=== PATIENT | male | born 1960 | race African-American/Black ===

== ENCOUNTER 2021-02-23 00:39 | Inpatient (IN) | payer OTHER ==
[2021-02-23 01:10] LABS: #Basophils 0.1 10x3/uL (0.0-0.2); #Eosinphils 0.3 10x3/uL (0.0-0.5); #Monocytes 0.7 10x3/uL (0.0-1.1); #Neutrophils 3.7 10x3/uL (1.5-8.4); %Eosinophils 4.2 % (0.0-6.0); %Lymphocytes 21.4 % (18.0-47.0); %Monocytes 11.7 % (0.0-10.0); %Neutrophils 61.2 % (40.0-75.0); Hemoglobin 13.2 g/dL (13.5-17.5); Mean Corpuscular HGB CONC 32.4 g/dL (32.0-36.0); Mean Corpuscular Hemoglobin 27.8 pg (27.0-33.0); Mean Corpuscular Volume 85.7 fl (81.2-95.1); Mean Platelet Volume 10.7 fl (7.4-10.4); Platelet Count 144 10x3/uL (150-450); RBC Distribution Width 15.9 % (11.5-14.5); Red Blood Cell (RBC) Count 4.75 10x6/uL (4.32-5.72)
[2021-02-23 01:27] LABS: ALT (SGPT) 13 U/L (8-55); AST (SGOT) 20 U/L (5-34); Albumin 3.8 g/dL (3.4-4.8); Alkaline Phosphatase 68 U/L (40-110); Anion Gap 14 mmol/L (10-20); BUN (Urea Nitrogen) 27 mg/dL (8.4-25.7); Bilirubin, Total 1.3 mg/dL (0.2-1.2); Calc. Creatinine Clearance 0 mL/min (70-130); Calcium 8.9 mg/dL (7.8-10.44); Carbon Dioxide 23 mmol/L (23-31); Chloride 105 mmol/L (98-107); Globulin 3.2 g/dL (2.4-3.5); Glucose 100 mg/dL (80-115); Potassium 4.2 mmol/L (3.5-5.1); Sodium 138 mmol/L (136-145)
[2021-02-23 01:46] LABS: CKMB 2.3 ng/mL (0-6.6)
[2021-02-23] MEDS ORDERED: Furosemide 100 MG/10 ML VIAL ONE (01:50)
[2021-02-23] MEDS ORDERED: Enoxaparin Sodium 40 MG/0.4 ML SYRINGE SC SCH (04:30)
[2021-02-23] MEDS ORDERED: Nitroglycerin 0.4 MG TAB (25 Tab Bottle) SL PRN (04:34)
[2021-02-23 05:02] LABS: Troponin I 0.062 ng/mL (< 0.028)
[2021-02-23] MEDS: Furosemide 40 MG/4 ML VIAL SLOW IVP SCH ×2 (05:26→15:43)
[2021-02-23] MEDS: Nitroglycerin 2% Ointment 1 INCH/1 GM Packet TOP SCH ×3 (06:16→22:00)
[2021-02-23] MEDS: Levothyroxine Sodium 50 MCG TAB PO SCH (06:19)
[2021-02-23 07:24] LABS: Anion Gap 15 mmol/L (10-20); BUN (Urea Nitrogen) 25 mg/dL (8.4-25.7); Calc. Creatinine Clearance 70 mL/min (70-130); Calcium 9.3 mg/dL (7.8-10.44); Carbon Dioxide 26 mmol/L (23-31); Chloride 102 mmol/L (98-107); Glucose 93 mg/dL (80-115); Magnesium 1.8 mg/dL (1.6-2.6); Potassium 3.9 mmol/L (3.5-5.1); Sodium 139 mmol/L (136-145)
[2021-02-23 07:28] LABS: Troponin I 0.055 ng/mL (< 0.028)
[2021-02-23 07:32] LABS: #Basophils 0.1 10x3/uL (0.0-0.2); #Eosinphils 0.3 10x3/uL (0.0-0.5); #Monocytes 0.6 10x3/uL (0.0-1.1); #Neutrophils 3.5 10x3/uL (1.5-8.4); %Basophils 0.9 % (0.0-2.0); %Eosinophils 4.7 % (0.0-6.0); %Lymphocytes 20.9 % (18.0-47.0); %Monocytes 11.3 % (0.0-10.0); %Neutrophils 61.8 % (40.0-75.0); Hemoglobin 13.9 g/dL (13.5-17.5); Mean Corpuscular HGB CONC 32.3 g/dL (32.0-36.0); Mean Corpuscular Volume 86.5 fl (81.2-95.1); Mean Platelet Volume 10.1 fl (7.4-10.4); Platelet Count 149 10x3/uL (150-450); RBC Distribution Width 16.2 % (11.5-14.5); Red Blood Cell (RBC) Count 4.97 10x6/uL (4.32-5.72); White Blood Cell (WBC) Count 5.6 10x3/uL (3.5-10.5)
[2021-02-23] MEDS ORDERED: Aspirin 81 mg Enteric Coated Tablet PO SCH (09:00)
[2021-02-23] MEDS: Spironolactone 25 MG TAB PO SCH (09:37)
[2021-02-23] MEDS: Lisinopril 2.5 MG TAB PO SCH (09:37)
[2021-02-23] MEDS: Carvedilol 12.5 MG TAB PO SCH ×2 (09:37→20:45)
[2021-02-23] MEDS: Aspirin 81 mg Enteric Coated Tablet PO SCH (09:37)
[2021-02-23] MEDS: Amiodarone 200 MG TAB PO SCH ×2 (09:37→20:45)
[2021-02-23] MEDS: hydrALAZINE 25 MG TAB PO SCH ×2 (09:37→20:45)
[2021-02-23] MEDS: Ferrous Sulfate 325 MG TAB PO SCH (09:38)
[2021-02-23] MEDS ORDERED: Magnesium Sulfate 2 GM in Sodium Chloride 0.9% 100 ML IVPB SCH (10:00)
[2021-02-23] MEDS ORDERED: Magnesium 2 GM/50 ML 2 GM in Premix Bag 1 BAG IVPB SCH (10:00)
[2021-02-23 17:22] LABS: SARS-CoV-2 PCR by NAA Not Detected (NotDetected)
[2021-02-23] MEDS: Atorvastatin Calcium 40 MG TAB PO SCH (20:45)
[2021-02-24 05:56] LABS: Anion Gap 12 mmol/L (10-20); BUN (Urea Nitrogen) 25 mg/dL (8.4-25.7); Calc. Creatinine Clearance 66 mL/min (70-130); Calcium 8.8 mg/dL (7.8-10.44); Carbon Dioxide 30 mmol/L (23-31); Chloride 102 mmol/L (98-107); Glucose 109 mg/dL (80-115); Potassium 3.8 mmol/L (3.5-5.1); Sodium 140 mmol/L (136-145)
[2021-02-24] MEDS: Furosemide 40 MG/4 ML VIAL SLOW IVP SCH (06:16)
[2021-02-24] MEDS: Levothyroxine Sodium 50 MCG TAB PO SCH (06:16)
[2021-02-24] MEDS: Nitroglycerin 2% Ointment 1 INCH/1 GM Packet TOP SCH (06:16)
[2021-02-24] MEDS ORDERED: Loperamide HCl 2 MG CAP PO PRN (06:27)
[2021-02-24] MEDS ORDERED: Bisacodyl 5 MG TAB PO PRN (06:27)
[2021-02-24] MEDS ORDERED: Cepastat Lozenges 1 LOZ PO PRN (06:27)
[2021-02-24] MEDS ORDERED: GUAIFENESIN SF SOLN 200 MG/10 ML UDCUP PO PRN (06:27)
[2021-02-24] MEDS ORDERED: HYDROcodone/Acetaminophen 5/325 mg Tablet PO PRN (06:27)
[2021-02-24] MEDS ORDERED: Hydrocerin (Eucerin) Cream 120 gm Jar TOP PRN (06:27)
[2021-02-24] MEDS ORDERED: Artificial Tear Sol 15 ML BOT EA EYE PRN (06:27)
[2021-02-24] MEDS ORDERED: Sodium Chloride 0.65% Nasal 44 ML BOT EA NARE PRN (06:27)
[2021-02-24] MEDS ORDERED: Loratadine 10 MG TAB PO PRN (06:27)
[2021-02-24] MEDS ORDERED: Calcium Carbonate 500 MG ChewTAB PO PRN (06:27)
[2021-02-24] MEDS ORDERED: Metoclopramide HCl 10 MG/2 ML VIAL IVP PRN (06:27)
[2021-02-24] MEDS ORDERED: hydrALAZINE 20 MG/ML VIAL SLOW IVP PRN (06:27)
[2021-02-24] MEDS ORDERED: Senokot S 8.6-50 MG TAB PO PRN (06:27)
[2021-02-24] MEDS ORDERED: Potassium Chloride 20 MEQ TAB PO SCH (08:45)
[2021-02-24] MEDS: Amiodarone 200 MG TAB PO SCH ×2 (09:33→20:06)
[2021-02-24] MEDS: Spironolactone 25 MG TAB PO SCH (09:34)
[2021-02-24] MEDS: hydrALAZINE 25 MG TAB PO SCH ×2 (09:34→20:04)
[2021-02-24] MEDS: Carvedilol 12.5 MG TAB PO SCH ×2 (09:34→20:07)
[2021-02-24] MEDS: Ferrous Sulfate 325 MG TAB PO SCH (09:34)
[2021-02-24] MEDS: Lisinopril 2.5 MG TAB PO SCH ×2 (09:34→20:06)
[2021-02-24] MEDS: Aspirin 81 mg Enteric Coated Tablet PO SCH (09:35)
[2021-02-24] MEDS: Furosemide 40 MG TAB PO SCH (13:41)
[2021-02-24] MEDS: Atorvastatin Calcium 40 MG TAB PO SCH (20:06)
[2021-02-25 05:51] LABS: #Eosinphils 0.3 10x3/uL (0.0-0.5); #Monocytes 0.7 10x3/uL (0.0-1.1); #Neutrophils 3.8 10x3/uL (1.5-8.4); %Basophils 0.5 % (0.0-2.0); %Eosinophils 4.7 % (0.0-6.0); %Lymphocytes 18.1 % (18.0-47.0); %Monocytes 12.4 % (0.0-10.0); %Neutrophils 63.8 % (40.0-75.0); Hemoglobin 13.3 g/dL (13.5-17.5); Mean Corpuscular HGB CONC 30.9 g/dL (32.0-36.0); Mean Corpuscular Hemoglobin 27.5 pg (27.0-33.0); Mean Corpuscular Volume 89.2 fl (81.2-95.1); Mean Platelet Volume 10.7 fl (7.4-10.4); Platelet Count 154 10x3/uL (150-450); Red Blood Cell (RBC) Count 4.83 10x6/uL (4.32-5.72)
[2021-02-25] MEDS: Levothyroxine Sodium 50 MCG TAB PO SCH (06:01)
[2021-02-25 07:32] LABS: ALT (SGPT) 14 U/L (8-55); AST (SGOT) 18 U/L (5-34); Albumin 3.5 g/dL (3.4-4.8); Alkaline Phosphatase 67 U/L (40-110); Anion Gap 11 mmol/L (10-20); BUN (Urea Nitrogen) 24 mg/dL (8.4-25.7); Bilirubin, Total 1.2 mg/dL (0.2-1.2); Calc. Creatinine Clearance 69 mL/min (70-130); Calcium 8.9 mg/dL (7.8-10.44); Carbon Dioxide 29 mmol/L (23-31); Chloride 103 mmol/L (98-107); Globulin 3.4 g/dL (2.4-3.5); Glucose 126 mg/dL (80-115); Phosphorus 3.8 mg/dL (2.3-4.7); Protein, Total 6.9 g/dL (5.8-8.1); Sodium 139 mmol/L (136-145)
[2021-02-25] MEDS ORDERED: Metolazone 5 MG TAB PO SCH (08:45)
[2021-02-25] MEDS: Spironolactone 25 MG TAB PO SCH (08:55)
[2021-02-25] MEDS: Furosemide 40 MG TAB PO SCH ×2 (08:55→14:51)
[2021-02-25] MEDS: Amiodarone 200 MG TAB PO SCH ×2 (08:55→20:52)
[2021-02-25] MEDS: Carvedilol 12.5 MG TAB PO SCH ×2 (08:55→20:53)
[2021-02-25] MEDS: Aspirin 81 mg Enteric Coated Tablet PO SCH (08:55)
[2021-02-25] MEDS: hydrALAZINE 25 MG TAB PO SCH ×2 (08:55→20:52)
[2021-02-25] MEDS: Lisinopril 2.5 MG TAB PO SCH ×2 (08:56→20:53)
[2021-02-25] MEDS: Enoxaparin Sodium 40 MG/0.4 ML SYRINGE SC SCH (08:56)
[2021-02-25] MEDS: Atorvastatin Calcium 40 MG TAB PO SCH (20:00)
[2021-02-26 06:04] LABS: Anion Gap 12 mmol/L (10-20); BUN (Urea Nitrogen) 26 mg/dL (8.4-25.7); Calc. Creatinine Clearance 68 mL/min (70-130); Calcium 9.4 mg/dL (7.8-10.44); Carbon Dioxide 29 mmol/L (23-31); Chloride 102 mmol/L (98-107); Glucose 110 mg/dL (80-115); Potassium 3.7 mmol/L (3.5-5.1); Sodium 139 mmol/L (136-145)
[2021-02-26 06:26] VITALS: BMI 33.8
[2021-02-26] MEDS: Levothyroxine Sodium 50 MCG TAB PO SCH (06:45)
[2021-02-26] MEDS ORDERED: Metolazone 5 MG TAB PO SCH (08:30)
[2021-02-26] MEDS: Furosemide 40 MG TAB PO SCH ×2 (09:29→13:45)
[2021-02-26] MEDS: hydrALAZINE 25 MG TAB PO SCH (09:29)
[2021-02-26] MEDS: Amiodarone 200 MG TAB PO SCH (09:29)
[2021-02-26] MEDS: Aspirin 81 mg Enteric Coated Tablet PO SCH (09:29)
[2021-02-26] MEDS: Carvedilol 12.5 MG TAB PO SCH (09:29)
[2021-02-26] MEDS: Spironolactone 25 MG TAB PO SCH (09:29)
[2021-02-26] MEDS: Lisinopril 2.5 MG TAB PO SCH (09:29)
[2021-02-26] MEDS: Enoxaparin Sodium 40 MG/0.4 ML SYRINGE SC SCH (09:30)
[2021-02-26 17:48] VITALS: BP 123/52; TEMP 98.4
== END 2021-02-26 19:00 | DRG 291 ==
LOC: CSHERS 00:39 → CSHTELE 00:40
PROVIDERS: ADMIT Family Medicine; ATTEND Internal Medicine
DX: I13.0 Hypertensive heart and chronic kidney disease with heart failure and stage 1 through stage 4 chronic kidney disease, or unspecified chronic kidney disease (principal); I50.23 Acute on chronic systolic (congestive) heart failure; I24.8 Other forms of acute ischemic heart disease; Z20.822 Contact with and (suspected) exposure to COVID-19; E78.5 Hyperlipidemia, unspecified; E03.9 Hypothyroidism, unspecified; K74.60 Unspecified cirrhosis of liver; I27.20 Pulmonary hypertension, unspecified; B19.20 Unspecified viral hepatitis C without hepatic coma; I25.10 Atherosclerotic heart disease of native coronary artery without angina pectoris; N18.31 Chronic kidney disease, stage 3a; Z79.82 Long term (current) use of aspirin; Z79.899 Other long term (current) drug therapy; Z95.810 Presence of automatic (implantable) cardiac defibrillator; Z87.891 Personal history of nicotine dependence; I25.2 Old myocardial infarction
CPT/HCPCS: 36415; 71045; 80048; 80053; 82553; 83735; 83880; 84100; 84443; 84484; 85025; 93005; 93010; 93306; 94760; 94762; 96374; 97139; J1650; J1940; J3475; U0003; U0005